=== PATIENT | male | born 1975 | race Caucasian/White ===

== ENCOUNTER → 2021-03-06 09:08 | Outpatient (CLI) | payer OTHER, SELFPAY ==
--- NOTE | 2021-03-06 09:11 | DI.RAD.S_ITS ---
PROCEDURE: XR CERVICAL SPINE 2V OR 3V INDICATIONS: Pain in neck TECHNIQUE: 4 view(s) of the cervical spine were acquired. COMPARISON: None. FINDINGS: Bones: No fractures or dislocations to the T1 level. The lateral masses of C1 appear intact on the odontoid view. No suspicious bony lesions. Loss of lordosis which could be related to muscle spasm, rigidity or simply positional. Minimal disc height loss at the C4-C5 and C5-C6 levels where there also is mild endplate sclerosis and spurring. Soft tissues: No prevertebral soft tissue swelling. IMPRESSION: Loss of lordosis and mild early disc degeneration at the C4-C5 and C5-C6 levels. Dictated by: Ricardo NIX Interpreted: Socrates Guerra MD on 03/06/2021 at 10:11 Transcribed by: JULIO on 03/06/2021 at 10:12 Approved by: Socrates Guerra M.D. on 03/06/2021 at 11:29
[2021-03-06 11:29] LABS: Add Manual Diff / Slide Review NO; Basophils Absolute Auto 0 /uL (0-100); Basophils Percent Auto 0.7 % (0-2); Eosinophils Absolute Auto 300 /uL (0-450); Eosinophils Percent Auto 5.4 % (2-4); Hematocrit 43.5 % (41-53); Hemoglobin 15.1 g/dL (13.5-17.5); Lymphocytes Absolute Auto 1800 /uL (1100-4500); Lymphocytes Percent Auto 31.2 % (25-40); Mean Corpuscular HGB Conc 34.6 % (30-36); Mean Corpuscular Hemoglobin 31.4 PG (26-34); Mean Corpuscular Volume 90.7 fL (80-100); Monocytes Absolute Auto 400 /uL (0-900); Monocytes Percent Auto 5.9 % (3-14); Neutrophils Absolute Auto 3400 /uL (1500-7000); Neutrophils Percent Auto 56.8 % (50-75); Platelet Count 314 X10^3/uL (150-400); Red Blood Cell Count 4.79 X10^6/uL (4.5-5.9); Red Cell Distribution Width 12.4 % (11.6-14.8); White Blood Cell Count 5.9 X10^3/uL (4.5-11.0)
[2021-03-06 12:04] LABS: Alanine Aminotransferase 33 IU/L (<50); Albumin 4.7 g/dL (3.5-5.0); Albumin Globulin Ratio 1.5 (1.0-2.8); Alkaline Phosphatase 75 U/L (38-126); Aspartate Aminotransferase 28 IU/L (17-59); BUN Creatinine Ratio 15.9 (6-22); Bilirubin Total 0.6 mg/dL (0.2-1.3); Blood Urea Nitrogen 17 mg/dL (9-20); Calcium 9.6 mg/dL (8.4-10.2); Carbon Dioxide 25 mmol/L (22-32); Chloride 104 mmol/L (98-107); Estimated Glomerular Filt Rate > 60.0 mL/min (>60); Globulin 3.2 g/dL (1.7-4.1); Glucose 102 mg/dL (70-100); HEMOLYSIS < 15 (0-50); Potassium 4.2 mmol/L (3.4-5.1); Sodium 137 mmol/L (137-145); Total Protein 7.9 g/dL (6.3-8.2); Uric Acid 8.6 mg/dL (3.5-8.5)
== END ==
LOC: LAB 09:09 → RAD 09:10
PROVIDERS: PCP Family Medicine; Referring Provider Family Medicine; Visit Provider Family Medicine
DX: M50.321 Other cervical disc degeneration at C4-C5 level (principal); M10.9 Gout, unspecified; R03.0 Elevated blood-pressure reading, without diagnosis of hypertension
CPT/HCPCS: 36415; 72040; 80053; 84550; 85025

== ENCOUNTER → 2022-07-12 09:05 | Outpatient (CLI) | payer OTHER, SELFPAY ==
[2022-07-12 10:24] LABS: Semen Sperm Prescence Post-Vas Absent (ABSENT)
[2022-07-12 10:31] LABS: Add Manual Diff / Slide Review NO; Basophils Absolute Auto 100 /uL (0-100); Basophils Percent Auto 0.7 % (0-2); Eosinophils Absolute Auto 500 /uL (0-450); Eosinophils Percent Auto 6.2 % (2-4); Hematocrit 52.1 % (41-53); Hemoglobin 18.3 g/dL (13.5-17.5); Lymphocytes Absolute Auto 1600 /uL (1100-4500); Lymphocytes Percent Auto 22.4 % (25-40); Mean Corpuscular HGB Conc 35.1 % (30-36); Mean Corpuscular Hemoglobin 32.1 PG (26-34); Mean Corpuscular Volume 91.5 fL (80-100); Monocytes Absolute Auto 600 /uL (0-900); Monocytes Percent Auto 8.8 % (3-14); Neutrophils Absolute Auto 4500 /uL (1500-7000); Neutrophils Percent Auto 61.9 % (50-75); Platelet Count 288 X10^3/uL (150-400); Red Cell Distribution Width 13.2 % (11.6-14.8); White Blood Cell Count 7.3 X10^3/uL (4.5-11.0)
[2022-07-12 10:45] LABS: Alanine Aminotransferase 54 IU/L (<50); Albumin 4.7 g/dL (3.5-5.0); Albumin Globulin Ratio 1.5 (1.0-2.8); Alkaline Phosphatase 75 U/L (38-126); Aspartate Aminotransferase 37 IU/L (17-59); BUN Creatinine Ratio 13.7 (6-22); Bilirubin Total 0.5 mg/dL (0.2-1.3); Blood Urea Nitrogen 13 mg/dL (9-20); Calcium 9.8 mg/dL (8.4-10.2); Carbon Dioxide 23 mmol/L (22-32); Chloride 100 mmol/L (98-107); Cholesterol 280 mg/dL (140-199); Estimated Glomerular Filt Rate > 60 mL/min (>60); Globulin 3.1 g/dL (1.7-4.1); Glucose 87 mg/dL (70-100); HDL Cholesterol 50 mg/dL (40-60); HEMOLYSIS < 15 (0-50); LDL Cholesterol Calculated 181 mg/dL (<100); Potassium 4.6 mmol/L (3.4-5.1); Sodium 135 mmol/L (137-145); Total Protein 7.8 g/dL (6.3-8.2); Triglycerides 244 mg/dL (35-150); Uric Acid 8.2 mg/dL (3.5-8.5)
[2022-07-12 10:58] LABS: Vitamin D 25 Hydroxy (D3) 45.6 ng/mL (30.0-100.0)
[2022-07-12 11:10] LABS: Prostate Specific Antigen 0.381 ng/mL (0.10-4.00)
[2022-07-12 11:30] LABS: Vitamin B12 541 pg/mL (239-931)
[2022-07-18 14:09] LABS: Percent Free Testosterone 2.73 % (1.50-4.20); Testosterone Free 43.14 ng/dL (5.00-21.00); Testosterone Total 1580.3 ng/dL (264.0-916.0)
== END ==
PROVIDERS: PCP Family Medicine; Referring Provider Family Medicine; Visit Provider Family Medicine
DX: M10.9 Gout, unspecified (principal); R03.0 Elevated blood-pressure reading, without diagnosis of hypertension; E55.9 Vitamin D deficiency, unspecified; E53.8 Deficiency of other specified B group vitamins; R79.89 Other specified abnormal findings of blood chemistry; Z98.52 Vasectomy status
CPT/HCPCS: 36415; 80053; 80061; 82306; 82607; 84153; 84402; 84403; 84550; 85025; 89321

== ENCOUNTER 2024-07-20 18:17 | Emergency (ER) | payer OTHER, SELFPAY ==
[2024-07-20 18:29] VITALS: BP 147/89; PULSE 88; RESP 18; TEMP 37.2; O2SAT 96; BMI 29.8
== END 2024-07-20 23:44 | disposition left against medical advice (07) ==
PROVIDERS: Emergency Provider Emergency Medicine; PCP Family Medicine
DX: S09.90XA Unspecified injury of head, initial encounter (principal)
CPT/HCPCS: 99281